=== PATIENT | male | born 1995 | race Caucasian/White ===

== ENCOUNTER 2016-11-22 23:10 | Emergency (ER) | payer OTHER ==
[2016-11-22 23:24] VITALS: TEMP 98.4
--- NOTE | 2016-11-22 23:30 | EDPHY ---
General - History Smoking Status: Unknown if ever smoked Narrative: CHIEF COMPLAINT: Heroin withdrawal, alcohol withdrawal HISTORY OF PRESENT ILLNESS: Patient is here because he feels that he is withdrawing heroin he admits to using 2 to 3 times a day of heroin. He also admits to drinking 7 a shot of alcohol daily of varying alcohol. Denies heroin use with the past 2 days. Denies any alcohol ingestion since yesterday evening. Complains of abdominal discomfort, hallucinations, malaise, nausea, vomiting, generalized withdrawal symptoms consistent with previous heroin withdrawals he has had. He does not describe any seizures, headache, neck pain , sweating, fever. He has never gone into delirium tremens. He has never had a seizure from alcohol withdrawal. No modifying factors for this. REVIEW OF SYSTEMS: Ten systems reviewed and are negative unless otherwise noted in the HPI PERTINENT MEDICAL HISTORY: Alcoholic, heroin abuser, substance abuse EXAMINATION General Appearance: Alert, no distress. Unkempt laying comfortably. Head: normocephalic, atraumatic Eyes: Pupils equal and round, no conjunctival pallor or injection. EOMs intact. ENT, Mouth: Mucous membranes moist. Lips are dry. Angular cheilitis. Neck: Normal inspection, supple, non-tender Respiratory: Lungs are clear to auscultation. No wheezing, rhonchi or crackles. Cardiovascular: Regular rate and rhythm. No murmur. Gastrointestinal: Abdomen is soft and nontender Neurological: A&O, nonfocal, strength symmetric. No tremulous activity. No spasms. No seizure activity. Skin: Warm and dry, no rash Extremities: Nontender, no pedal edema Psychiatric: Flat affect. Denies suicidal ideation or homicidal ideation. DIFFERENTIAL DIAGNOSES: Including but not limited to heroin abuse, withdrawal, alcohol abuse, alcohol withdrawal. Substance abuse MDM: 8:20 p.m. Reports a withdrawing from alcohol and heroin. Patient is resting very comfortably. His vital signs are all within normal limits. He is not tremulous. He does not exhibit any seizure-like activity. He is not encephalopathic. He is resting very comfortably. I do not feel he is actively withdrawing, and I certainly do not see any evidence of delirium tremens. I do recommend that we place the patient on Librium, he has consented to going to the park for treatment. Awaiting evaluation by attending physician 11:[address] Escalante has evaluated the patient. She agrees with my assessment and plan. She recommends 1 dose of Librium 25 mg here. The patient has consented to being transported to the [facility] for monitor Librium administration. Patient will be discharge and taken to the [facility] by cab. He is ambulatory without assistance, and he is in no acute distress. Stable condition. SUPERVISION: Patient was evaluated in conjunction with the supervising physician. Please see their note for details. (Rafael Soliman) Medical Decision Making: ED PA DICTATION I evaluated and participated in the management of the patient. I also evaluated the patient independently. My co-signature indicates that I have reviewed this chart and I agree with the findings and plan of care as documented. My personal H&P findings include: This is a 21-year-old male with recent heavy alcohol and heroin use who quit using over the last 1 day and now is presenting with withdrawal symptoms. He describes visual hallucinations which she has had multiple times previously with his withdrawals. He does not have tachycardia, tremor, anxiety. He is generally well-appearing. He will be discharged with a prescription for Librium, we will give him his 1st dose here. [facility]. (Verenice Escalante) - Objective Vital Signs: Initial Vital Signs Temperature (C) 36.9 C 11/22/16 23:21 Heart Rate 75 11/22/16 23:21 Respiratory Rate 14 11/22/16 23:21 Blood Pressure 117/65 11/22/16 23:21 O2 Sat (%) 97 11/22/16 23:21 O2 Delivery Mode Room Air Allergies/Adverse Reactions: tree nut Allergy (Verified 11/22/16 23:20) Home Medications: Medication Instructions Recorded NK [No Known Home Meds] 11/22/16 Medications Given: Discontinued Medications Chlordiazepoxide (Librium 25 Mg Prepack#6) 1 btl TAKEHOME EDNOW ONE Stop: 11/22/16 23:36 Last Admin: 11/23/16 00:07 Dose: 1 btl Chlordiazepoxide HCl (Librium) 25 mg PO EDNOW ONE Stop: 11/22/16 23:36 Last Admin: 11/23/16 00:00 Dose: 25 mg Departure - Departure Disposition: Home, Routine, Self-Care Clinical Impression: Heroin abuse, Alcohol abuse Condition: Good Instructions: Narcotic Abuse (ED), Abuse of Alcohol (ED), Polysubstance Abuse ( ED) Additional Instructions: Follow-up at the [facility] for monitor Librium administration. Return to ER for worsening symptoms, fever, sweating or vomiting Referrals: Patient,NotPresent [Unknown] - As per Instructions Lei London DO [Doctor of Osteopathy] - As per Instructions
[2016-11-22] MEDS ORDERED: chlordiazePOXIDE 25 MG CAP PO ONE (23:35)
[2016-11-22] MEDS ORDERED: CHLORDIAZEPOXIDE 25MG PREPK#6 BTL TAKEHOME ONE (23:35)
[2016-11-23 00:06] VITALS: BP 118/65; PULSE 82; RESP 18; O2SAT 96
== END 2016-11-23 00:09 | disposition home or self-care (01) ==
DX: F11.10 Opioid abuse, uncomplicated (principal); F10.10 Alcohol abuse, uncomplicated

== ENCOUNTER 2016-11-23 18:07 | Inpatient (IN) | payer OTHER ==
--- NOTE | 2016-11-23 18:35 | EDPHY ---
H & P Smoking Status: Current every day smoker Time Seen by Provider: 11/23/16 18:30 HPI/ROS: CHIEF COMPLAINT: SI. HISTORY OF PRESENT ILLNESS: The patient is a 21-year-old male who presents with SI. He admits auditory hallucinations telling him to kill himself and others. He reports a history of drug-induced psychosis but no other psychiatric illnesses. He last used heroin 3 days and and last drank alcohol yesterday and is withdrawing from both. He has been admitted to psychiatric facilities 3 times before. He has not been on his psychiatric medications since moving to [place]. He denies benzodiazepine use, recent sickness, fever, or other medical complaints at this time. REVIEW OF SYSTEMS: A complete 10-point review of systems was performed and is negative except for those items mentioned in the HPI. (Dorothy Rios) Past Medical/Surgical History: Drug-induced psychosis. (Dorothy Rios) Social History: Polysubstance abuse, smoker. (Dorothy Rios) Physical Exam: General Appearance: Alert, no distress Eyes: Pupils equal and round, no conjunctival pallor or injection ENT, Mouth: Mucous membranes moist Neck: Normal inspection Respiratory: Lungs are clear to auscultation Cardiovascular: Regular rate and rhythm Gastrointestinal: Abdomen is soft and non-tender Neurological: A&O, nonfocal, normal gait Skin: Warm and dry, no rash Extremities: Nontender, no pedal edema Psychiatric: Mood and affect normal (Dorothy Rios) Constitutional: Initial Vital Signs Temperature (C) 36.4 C 11/23/16 18:18 Heart Rate 70 11/23/16 18:18 Respiratory Rate 18 11/23/16 18:18 Blood Pressure 106/80 11/23/16 18:18 O2 Sat (%) 96 11/23/16 18:18 O2 Delivery Mode Room Air Allergies/Adverse Reactions: tree nut Allergy (Verified 11/23/16 18:17) Home Medications: Medication Instructions Recorded NK [No Known Home Meds] 11/22/16 Medical Decision Making ED Course/Re-evaluation: 21-year-old male presents for suicide ideation and auditory hallucinations. He tells me these are telling him both to kill himself and harm others. Last heroin use 3 days ago and last alcohol use yesterday. He has no medical complaints at this time. An M1 hold was placed by me. The patient is awaiting evaluation by the mental health team. 2048: Consulted with [facility]. They report that the patient is not being fully honest and they have not been able to complete a full evaluation as he is not being fully cooperative. They do not believe he is having hallucinations. We reevaluated him together. I discussed with him the benefits of working with the mental health team. They are reevaluating him. 2199: Patient signed out to Dr. Mack at shift change. He is currently being evaluated. (Dorothy Rios) 11/23/162199 Care assumed by me from Dr Rios. Pt is suicidal, on M1 hold. Awaiting mental health evaluation. 11/24/16 00:10 patient 6 been accepted to [address] [place] [address] Spann[address] (Mike Mack) - Data Points Laboratory Results: Laboratory Results 11/23/16 18:41 11/23/16 18:41 11/23/16 11/23/16 11/23/16 19:00 18:41 18:41 WBC 7.87 10^3/uL 10^3/uL (3.80-9.50) RBC 5.83 10^6/uL 10^6/uL (4.40-6.38) Hgb 17.0 g/dL g/dL (13.7-17.5) Hct 49.5 % % (40.0-51.0) MCV 84.9 fL fL (81.5-99.8) MCH 29.2 pg pg (27.9-34.1) MCHC 34.3 g/dL g/dL (32.4-36.7) RDW 12.8 % % (11.5-15.2) Plt Count 237 10^3/uL 10^3/uL (150-400) MPV 8.9 fL fL (8.7-11.7) Neut % (Auto) 46.9 % % (39.3-74.2) Lymph % (Auto) 39.5 % % (15.0-45.0) Citrus % (Auto) 8.3 % % (4.5-13.0) Eos % (Auto) 4.4 % % (0.6-7.6) Baso % (Auto) 0.5 % % (0.3-1.7) Nucleat RBC Rel Count 0.0 % % (0.0-0.2) Absolute Neuts (auto) 3.69 10^3/uL 10^3/uL (1.70-6.50) Absolute Lymphs (auto) 3.11 10^3/uL H 10^3/uL (1.00-3.00) Absolute Monos (auto) 0.65 10^3/uL 10^3/uL (0.30-0.80) Absolute Eos (auto) 0.35 10^3/uL 10^3/uL (0.03-0.40) Absolute Basos (auto) 0.04 10^3/uL 10^3/uL (0.02-0.10) Absolute Nucleated RBC 0.00 10^3/uL 10^3/uL (0-0.01) Immature Gran % 0.4 % % (0.0-1.1) Immature Gran # 0.03 10^3/uL 10^3/uL (0.00-0.10) Sodium 137 mEq/L mEq/L (134-144) Potassium 4.8 mEq/L mEq/L (3.5-5.2) Chloride 98 mEq/L mEq/L (97-110) Carbon Dioxide 26 mEq/l mEq/l (22-31) Anion Gap 13 mEq/L mEq/L (8-16) BUN 15 mg/dL mg/dL (7-23) Creatinine 0.9 mg/dL mg/dL (0.7-1.3) Estimated GFR > 60 Glucose 86 mg/dL mg/dL (70-100) Calcium 10.0 mg/dL mg/dL (8.5-10.4) Urine Opiates Screen NEGATIVE (NEGATIVE) Urine Barbiturates NEGATIVE (NEGATIVE) Ur Phencyclidine Scrn NEGATIVE (NEGATIVE) Ur Amphetamine Screen NEGATIVE (NEGATIVE) U Benzodiazepines Scrn NON-NEGATIVE H (NEGATIVE) Urine Cocaine Screen NEGATIVE (NEGATIVE) U Marijuana (THC) Screen NON-NEGATIVE H (NEGATIVE) Ethyl Alcohol < 10 mg/dL mg/dL (0-10) Departure - Departure Disposition: [facility] IP Clinical Impression: Suicide ideation Condition: Fair Referrals: NONE *PRIMARY CARE P,. [Primary Care Provider] - As per Instructions Report Scribed for: Dorothy Rios Report Scribed by: Devin Arguelles Date of Report: 11/23/16 Time of Report: 18:31 Physician Review and Approval Statement: 11/23/16 18:31 Portions of this note were transcribed by a medical charge entry specialist. I personally performed a history, physical exam, medical decision making, and confirmed accuracy of information the transcribed note. (Dorothy Rios)
[2016-11-23 18:51] LABS: % IMMATURE GRANULYOCYTES 0.4 % (0.0-1.1); ABSOLUTE IMMATURE GRANULOCYTES 0.03 10^3/uL (0.00-0.10); ADD DIFF? NO; ADD MORPH? NO; ADD SCAN? NO; ATYPICAL LYMPHOCYTE FLAG 20 (0-99); FRAGMENT RBC FLAG 0 (0-99); HEMATOCRIT 49.5 % (40.0-51.0); LEFT SHIFT FLG 0 (0-99); LIPEMIA HEMOLYSIS FLAG 90 (0-99); MEAN CELL HEMOGLOBIN 29.2 pg (27.9-34.1); MEAN CELL HEMOGLOBIN CONCENTR. 34.3 g/dL (32.4-36.7); MEAN CELL VOLUME 84.9 fL (81.5-99.8); MEAN PLATELET VOLUME 8.9 fL (8.7-11.7); PLATELET CLUMPS FLAG 0 (0-99); PLATELET COUNT 237 10^3/uL (150-400); RED BLOOD CELL COUNT 5.83 10^6/uL (4.40-6.38); RED CELL DISTRIBUTION WIDTH 12.8 % (11.5-15.2)
[2016-11-23 19:02] LABS: ANION GAP 13 mEq/L (8-16); CARBON DIOXIDE 26 mEq/l (22-31); CHLORIDE 98 mEq/L (97-110); CREATININE 0.9 mg/dL (0.7-1.3); ETHANOL SERUM < 10 mg/dL (0-10); GLOMERULAR FILTRATION RATE > 60; GLUCOSE 86 mg/dL (70-100); POTASSIUM 4.8 mEq/L (3.5-5.2); SODIUM 137 mEq/L (134-144)
[2016-11-24] MEDS ORDERED: OLANZapine DISINTEGR 10 MG TAB PO PRN (00:40)
[2016-11-24] MEDS ORDERED: MAG HYDROX/AL HYDROX/SIMETH 30 ML UDCUP PO PRN (00:40)
[2016-11-24] MEDS ORDERED: ACETAMINOPHEN 325 MG TAB PO PRN (00:40)
[2016-11-24] MEDS ORDERED: NICOTINE POLACRILEX 2 MG GUM B PRN (00:40)
[2016-11-24] MEDS ORDERED: MAGNESIUM HYDROXIDE 30 ML UDCUP PO PRN (00:40)
--- NOTE | 2016-11-24 16:25 | BCON ---
[f rep ] BEHAVIORAL HEALTH CONSULTATION INTERNAL MEDICINE CONSULTATION DATE OF CONSULTATION: 11/24/2016 REFERRING PHYSICIAN: Yonatan Spann MD REASON FOR CONSULTATION: Medical clearance for inpatient behavioral health stay. HISTORY OF PRESENT ILLNESS: The patient came to the emergency department with suicidal ideation and complaining of auditory hallucinations telling him to kill himself and others. He also reported that he had last used heroin 3 days prior and that he had had alcohol the day before and was in withdrawal from both. He was evaluated by the mental health team and admitted for further psychiatric care. He reports that he is no longer feeling withdrawal symptoms, though he feels sleepy. Otherwise, he is without any acute medical complaints. PAST MEDICAL HISTORY: 1. Polysubstance abuse. 2. Concussion in high school. PAST SURGICAL HISTORY: He reports he has had an appendectomy and nasal surgery. MEDICATIONS: He was noncompliant with his psychiatric medications, which were clonazepam 1 mg p.o. daily, quetiapine 300 mg p.o. q.h.s., gabapentin 1600 mg p.o. daily, and paliperidone 6 mg p.o. daily. ALLERGIES: There is a tree nut allergy listed. SOCIAL HISTORY: He is a heavy tobacco smoker, and he has a history of alcohol use as well as heroin use. His tox screen was positive for marijuana as well. FAMILY HISTORY: Noncontributory. REVIEW OF SYSTEMS: He denies withdrawal symptoms, including no tremor, no sweats, no piloerection. He reports that he has constipation. He reports that he has a history of intranasal heroin use and denies a history of IV drug abuse , and he has no skin infections. Otherwise, a 10-point review of systems is negative. PHYSICAL EXAM: VITAL SIGNS: Blood pressure is 120/67. Heart rate is 66. Respiratory rate is 15. Oxygen saturation is 97% on room air. Temperature is 36.6 degrees centigrade. His weight is 74.8 kg for a body mass index of 23. GENERAL: This is a well-nourished, well-developed man, appears his chronologic age, cooperative and in no acute distress. HEENT: Extraocular movements are intact. Pupils are equal, round, and reactive to light. Mucous membranes are moist. Dentition is in good condition. There is no posterior oropharyngeal mucus or oropharyngeal mucosal erythema or exudate. NECK: Supple. HEART: There is a regular rate and rhythm with no murmurs, rubs, or gallops. LUNGS: Clear to auscultation bilaterally. ABDOMEN: Soft, nontender, and nondistended with normoactive bowel sounds. EXTREMITIES: There is no cyanosis, clubbing, or edema. NEUROLOGIC: He is alert and oriented x3. Cranial nerves 2-12 are grossly intact. There is no focal weakness. Sensation is intact to light touch , and gait is within normal limits. LABORATORY STUDIES: Drawn in the emergency department: CBC was overall within normal limits, but for a slight increase in absolute lymphocytes of no clinical significance. Serum chemistry revealed normal renal function and electrolytes. Toxicology screen in the serum was negative for ethyl alcohol and in the urine was non-negative for benzodiazepines and marijuana. It was otherwise negative for other substances of abuse. ASSESSMENT/RECOMMENDATIONS: 1. Mental health issues. Pending further evaluation and management per Psychiatry and the mental health team. 2. Tobacco dependence syndrome. He was encouraged to quit smoking. 3. Heroin abuse. He does not appear to be in withdrawal from heroin. He might benefit from specific substance abuse counseling. I see no medical contraindications to the patient's continued stay on the inpatient behavioral health unit or to any psychiatric medications or procedures. Thank you very much for including me in the care of this patient, and please do not hesitate to contact me or the hospitalist service should there be a need for further medical evaluation. /[id number]/MODL MTDD
[2016-11-24] MEDS: LORazepam 0.5 MG TAB PO PRN (17:49)
[2016-11-24] MEDS: QUEtiapine FUMARATE 50 MG TAB PO PRN (17:49)
--- NOTE | 2016-11-24 19:16 | BAPA ---
[f rep st] ADMISSION PSYCHIATRIC ASSESSMENT DATE OF SERVICE: 11/24/2016 REASON FOR ADMISSION: The patient is a 21-year-old, male with a self-reported history of drug-induced psychosis, substance dependence, obsessive-compulsive disorder and ADHD. He presented to the emergency department after having gone initially to the [facility] requesting detox. He stated he w as in "severe alcohol withdrawal." He states he was hearing voices and seeing things, and "I was ab out to lose my mind." While he was at the [facility], he told them he was having thoughts of suicide and w as brought over to the emergency department by the police. In the emergency department, he continue d to endorse both the psychotic symptoms and suicidality and was placed on an M1 hold and admitted f or further evaluation. Today he states that he is no longer having any hallucinations. He does not believe he is any longer in withdrawal. He states that he drinks 8 shots of liquor per night, usual ly vodka, and smokes marijuana on a daily basis. He also reports that, over the last month, he has decided to take up heroin and has been snorting some form of heroin on a daily basis since then. He describes the auditory hallucinations as "people screaming" and states that he is seeing some type of person that "looks like a monster" in his peripheral vision. He does report that this has resolv ed now but that this was occurring over the last several days. He and his girlfriend apparently tra veled from [place], [place], out to [place] about 5 days ago. Shortly after arriving, the girlfriend decided she needed to go into rehab and drove back by herself to [place], [place]. The patient states that he has been alone and homeless in [place] since that time and that this is contributing to his suicidality. He states now that he wants to return to his parents' home and [place] and seek han tment there. PAST PSYCHIATRIC HISTORY: Significant for 3 previous psychiatric hospitalizations; the last in 2015. He had 1 previous suicide attempt by overdose per his report about 6 months ago. He has been managed by Dr. Meyer in [place] for his medications and was previously prescribed Invega, Ser oquel and Neurontin. He states that he believes the Seroquel was helpful but the others were not. He has not taken any medicines in approximately 1 week. ALLERGIES: Tree nuts. CURRENT MEDICATIONS: None. PAST MEDICAL HISTORY: Noncontributory. Patient denies any history of central nervous system diseas e. SOCIAL HISTORY: The patient lives in [place] with his parents. He is a high school graduate with one semester of college. He has 2 younger siblings who live at home. He was living with his parent s until he relapsed on alcohol and drugs, at which time he decided to leave or they decided for him to leave and he came to [place]. 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 He denies any legal problems at this time. SUBSTANCE ABUSE HISTORY: Alcohol: The patient began drinking at 15 and states he drinks 8 shots a day at this time. He states he has had major alcohol withdrawal in the past. Marijuana: The patient smokes marijuana daily. Opiates: The patient states that he has been using heroin on a daily or near daily basis for the pas t month, snorting. Denies any IV drug use. Hallucinogens: The patient states that he has used mushrooms and LSD. FAMILY HISTORY: Noncontributory for any history of psychiatric illness or substance abuse. ADMISSION LABORATORY: CBC is normal. Serum chemistries are normal. Urine drug screen positive for benzodiazepines and marijuana. MENTAL STATUS EXAMINATION: Reveals a thin though healthy-appearing male. He is marginall y groomed, casually dressed. He interacts well with the examiner, displaying good social skills and a calm and pleasant demeanor. He appears to be somewhat anxious and is hypervigilant, turning to l ook at the door every time someone walks by or yells in the hallway. His affect is otherwise constr icted though stable and appropriate. His mood is described as "messed up." His thought processes a re linear and goal directed. His thought content reveals no current evidence of psychosis. No rece nt report of auditory or visual hallucinations. He is alert and oriented to person, place, time, si tuation and his sensorium is clear. His attention and concentration are adequate. There is no evid ence of intoxication or delirium. He denies current thoughts of suicide, stating that he feels bett er having been in the hospital and his withdrawal symptoms resolved. He wants to get on a plane and return to [place]. The patient's intellect appears to be at least average as evidenced by his educa tional and occupational history, his fund of knowledge, and vocabulary. His insight and judgment ap pear to be marginal. IMPRESSION: 1. Substance-induced psychosis. 2. Cannabis use disorder, severe. 3. Alcohol use disorder, moderate to severe. 4. Opiate use disorder, moderate to severe. 5. Attention deficit hyperactivity disorder by history. 6. Obsessive compulsive disorder by history. 7. Major depressive disorder, by history. 8. Homelessness. 9. Separation from natural supports. PLAN: The patient is a 21-year-old, male with a primary substance use disorder. He prese nts at this time on transfer from the detox unit due to having voiced some suicidal ideation. There is no evidence of major alcohol withdrawal at this time and I would attribute any valid psychotic s ymptoms to intoxication. He currently appears to be medically stable and disavowing thoughts of daria cide. Will monitor for least another 24 hours prior to considering allowing him to return home to [place] of his own accord. Estimated length of stay is 2-3 days. /[id number]/MODL
[2016-11-24] MEDS: QUEtiapine FUMARATE 300 MG TAB PO SCH (21:03)
[2016-11-25] MEDS: QUEtiapine FUMARATE 50 MG TAB PO PRN ×3 (10:06→18:14)
[2016-11-25] MEDS: LORazepam 0.5 MG TAB PO PRN ×3 (10:06→18:14)
--- NOTE | 2016-11-25 18:33 | SOAPPROG ---
SOAP Progress Note Assessment/Plan: Assessment: Plan: 11/25/16 18:33 Stabilizing. No withdrawal, no psychosis, no current SI. May go to [facility] on Monday. CCM. Subjective: Pt seen, discussed with staff. Reports feeling "messed up" but denies any withdrawal sx's or hallucinations. Spending most of his time in bed. No bx problems. Objective: Vital Signs Temp Pulse Resp BP Pulse Ox 36.5 C 64 15 117/57 L 95 11/25/16 06:00 11/25/16 06:00 11/25/16 06:00 11/25/16 06:00 11/25/16 06:00 MSE: Moderately anxious, cooperative and interactive. Affect is constricted, stable. Mood is "not too good." TP linear. TC reveals no active psychosis. No current SI. - Time Spent With Patient Time Spent With Patient: 15" ICD10 Worksheet Patient Problems: Problems Problem Status Onset Suicide ideation Acute
[2016-11-25] MEDS: QUEtiapine FUMARATE 300 MG TAB PO SCH (21:39)
[2016-11-26 06:41] VITALS: BP 101/57; PULSE 58; RESP 16; TEMP 97.5; O2SAT 99
[2016-11-26] MEDS: QUEtiapine FUMARATE 50 MG TAB PO PRN ×2 (08:22→12:06)
[2016-11-26] MEDS: LORazepam 0.5 MG TAB PO PRN ×2 (08:22→12:06)
--- NOTE | 2016-11-26 14:00 | BDS ---
[f rep st] BEHAVIORAL HEALTH DISCHARGE SUMMARY REASON FOR ADMISSION: Patient is a 21-year-old male with a history of substance abuse., d epression, and previous suicidality. He initially had gone to the [facility] requesting detox from alcohol , but gave a very inconsistent history of what he described as severe withdrawal that clearly was no t happening. He did tell them he was suicidal and was brought over to [facility]. There he continued to voice suicidal thoughts, was placed on an M1 hold, and admitted for furthe r evaluation. Full description of the events preceding admission can be found in his admission hist ory dated 11/24/2016. ADMITTING DIAGNOSES: 1. Substance-induced psychosis. 2. Cannabis-use disorder, severe. 3. Alcohol-use disorder, moderate to severe. 4. Opiate-use disorder, moderate to severe. 5. Attention deficit hyperactivity disorder, by history. 6. Obsessive-compulsive disorder, by history. 7. Major depressive disorder, by history. 8. Homelessness and separation from natural supports. ADMITTING PHYSICAL EXAMINATION: Performed by Dr. Jovani Hu, showed no acute findings. ADMISSION LABORATORY: CBC was normal. Serum chemistries were normal. Urine drug screen was positi ve for benzodiazepines and marijuana. HOSPITAL COURSE: [facility] on an M1 hold. He was isolative, staying in his room, not wanting to participate in groups or actively in intervi ews. He was able to give me a history, though he seemed to embellish many aspects of this; one of w hich was that he was hearing things and seeing things, which I do not believe he was. We did monito r him for any evidence of acute withdrawal, and his vital signs were stable. He was given Seroquel 50 mg every 4 hours as needed for anxiety and took several doses of this. He was also given some am ount of lorazepam 0.5 to 1 mg, also for anxiety. He was given Seroquel 300 mg at h.s. for sleep per his request. The patient was engaged by me and the healthcare sales representative, and his mother was involved from their home in [place]. She voiced a strong desire for him to return to a rehab, and interviews were done over the phone with both [facility] here in [place] and with a program in [place]. He was accepted into both programs, but then, after he was made a voluntary patient, he immediately requested discharge and s tated that he wanted to hitchhike to [place] and not go to rehab. I discussed this with him in v jefe blunt terms, that I believe this was a poor choice and that he should likely seek sobriety. He stated that he did not want to. He was allowed to be discharged. He adamantly denied suicidality t hroughout his stay and stated at the time of discharge he was having no thoughts of suicide, homicid e, or violence. CONDITION ON DISCHARGE: Stable. He was functioning adequately, though he is making poor choices. He was competent to do so. DISCHARGE MEDICATIONS: None. DISCHARGE DIAGNOSES: 1. Cannabis-use disorder, severe. 2. Opiate-use disorder, moderate. 3. Alcohol-use disorder, moderate to severe. 4. Homelessness and separation for natural supports. DISPOSITION: Patient left the hospital against medical advice of his own accord. FOLLOWUP: None scheduled. LEGAL COURSE: The patient was converted to a voluntary status at the expiration of his M1 hold. /[id number]/MODL
== END 2016-11-26 13:50 | disposition left against medical advice (07) | DRG 894 ==
LOC: BBEH 11-24 00:30
PROVIDERS: ADMIT Psychiatry & Neurology Psychiatry; ATTEND Psychiatry & Neurology Psychiatry
DX: F12.90 Cannabis use, unspecified, uncomplicated (principal); F11.90 Opioid use, unspecified, uncomplicated; Z72.89 Other problems related to lifestyle; Z59.0 Homelessness; F17.200 Nicotine dependence, unspecified, uncomplicated
CPT/HCPCS: 80305; G0480

== ENCOUNTER 2017-01-19 16:14 | Emergency (ER) | payer OTHER ==
[2017-01-19 16:27] VITALS: BP 128/50; PULSE 118; RESP 16; TEMP 97.7; O2SAT 95
--- NOTE | 2017-01-19 16:29 | EDPHY ---
H & P Time Seen by Provider: 01/19/17 16:19 HPI/ROS: Chief Complaint: Med clearance, seizure HPI: 21-year-old male states he has a history of seizure disorder and schizophrenia bipolar disorder. Has normally takes Xanax for his mental illness and his seizures. He just moved to [place] about a week ago. Patient was being pursued by the police in a foot vishal because he was afraid he was going to get arrested. Patient states he had a seizure about a week ago. Has been using polysubstance including meth, MDMA, alcohol. Last meth was yesterday. Last alcohol was this morning. Denies any falls or trauma. No loss of consciousness or seizures. Did not hit his head. Is complaining of "brain pain" from his mental illness. Patient states he start taking his medications several weeks ago. ROS: 10 point Review of Systems is negative except as noted in the HPI. PMH: Mental illness, nonspecified Social History: Positive smoking, positive alcohol, polysubstance abuse recently including methamphetamine, MDMA Family History: non-contributory Physical Exam: Gen: Awake, Alert, No Distress, disheveled, shortness, HEENT: Nose: no rhinorrhea Eyes: PERRLA, EOMI Mouth: Moist mucosa Neck: Supple, no JVD Chest: nontender, lungs clear to auscultation Heart: S1, S2 normal, no murmur Abd: Soft, non-tender, no guarding Back: no CVA tenderness, no midline tenderness Ext: no edema, non-tender Skin: no rash Neuro: CN II-XII intact, Sensation grossly intact, Strength 5/5 in bilateral upper and lower extremities - Medical/Surgical History Hx Asthma: No Hx Chronic Respiratory Disease: No Hx Diabetes: No Hx Cardiac Disease: No Hx Renal Disease: No Hx Cirrhosis: No Hx Alcoholism: No Hx HIV/AIDS: No Hx Splenectomy or Spleen Trauma: No Other PMH: DRUG ABUSE/PSYCH ISSUES; appendectomy about two years ago - Social History Smoking Status: Heavy smoker Allergies/Adverse Reactions: tree nut Allergy (Verified 11/23/16 18:17) Home Medications: Medication Instructions Recorded Xanax 01/19/17 Medical Decision Making ED Course/Re-evaluation: 21-year-old male here complaining of a seizure week ago claiming he has a seizure disorder for which she normally takes Xanax. He was involved in a foot vishal nurse by police. They brought him in for medical clearance. Patient is tachycardic likely secondary from his running a and his methamphetamine abuse. There is no evidence of any traumatic injuries on examination. He is awake alert answering questions acting appropriately. He is medically cleared for snf. Departure - Departure Disposition: Home, Routine, Self-Care Clinical Impression: Medical clearance for incarceration Condition: Good Instructions: Methamphetamine Abuse (ED), Polysubstance Abuse (ED) Additional Instructions: Patient is medically clear for snf. Referrals: Patient,NotPresent [Primary Care Provider] - As per Instructions
== END 2017-01-19 16:33 | disposition home or self-care (01) ==
LOC: EDUNIT#
DX: Z02.89 Encounter for other administrative examinations (principal); F17.200 Nicotine dependence, unspecified, uncomplicated

== ENCOUNTER 2017-02-17 19:29 | Emergency (ER) | payer OTHER ==
--- NOTE | 2017-02-17 19:30 | EDPHY ---
H & P Time Seen by Provider: 02/17/17 19:30 Constitutional: Initial Vital Signs Temperature (C) 37.5 C 02/17/17 19:37 Heart Rate 129 H 02/17/17 19:37 Respiratory Rate 20 02/17/17 19:37 Blood Pressure 125/53 H 02/17/17 19:37 O2 Sat (%) 98 02/17/17 19:37 O2 Delivery Mode Room Air Allergies/Adverse Reactions: tree nut Allergy (Verified 02/17/17 19:37) Home Medications: Medication Instructions Recorded Xanax 01/19/17 Amoxicillin/Clavulanate Pot 875 mg PO BID #20 tab 02/17/17 [Augmentin 875 MG TAB (*)] Medical Decision Making ED Course/Re-evaluation: CHIEF COMPLAINT: Police dog bite HISTORY OF PRESENT ILLNESS: The patient is a 22 y/o male arriving via EMS in [facility] custody for medical clearance after police dog bite. Per EMS, the patient ran from police and the K9 unit ran after him biting him on the left posterior thigh. He denies any other complaints. No weakness, paresthesias. REVIEW OF SYSTEMS: A 10 point review of systems was performed and is negative with the exception of the elements mentioned in the history of present illness. PHYSICAL EXAM: HR, BP, O2 Sat, RR. Temp noted General Appearance: Alert, well hydrated, appropriate, and non-toxic appearing. Covered in mud, flat affect. Head: Atraumatic without scalp tenderness or obvious injury Eyes: Pupils equal, round, reactive to light and accommodation, EOMI, no trauma , no injection. Nose: Atraumatic, no rhinorrhea, clear. Throat: Mucus membranes moist. Neck: Supple, nontender Respiratory: No respiratory distress. Cardiovascular: Left posterior tibial pulse intact. Good capillary refill all extremities. Gastrointestinal: Abdomen is soft, nontender, non-distended, no masses, no rebound, no guarding, no peritoneal signs. Musculoskeletal: Normal active ROM of all extremities, puncture wounds to left posterolateral thigh, otherwise atraumatic. Neurological: Alert, appropriate, and interactive. Nonfocal neuro exam. Skin: No rashes, good turgor, no nodules on palpation. Past medical history: Denies Past surgical history: Denies Family history: Noncontributory Social history: In [employer] custody DIFFERENTIAL DIAGNOSIS: The differential diagnosis for the patient's trauma included but was not limited to intracranial injury, long bone and pelvic bone fractures, spinal injury, intra-abdominal injury, and intra-thoracic injury. MEDICAL DECISION MAKING: This is a 22 y/o male who presents with puncture wounds to his left thigh following bite by police dog. He denies any specific complaints. Puncture wounds noted on posterolateral left thigh that are non-suturable. Plan for wound care, tetanus, and antibiotics, then discharge to the snf in good condition. Return precautions discussed. Departure - Departure Disposition: Home, Routine, Self-Care Clinical Impression: Dog bite of left thigh Qualifiers: Encounter type: initial encounter Qualified Code(s): S71.152A - Open bite, left thigh, initial encounter Condition: Good Instructions: Amoxicillin/Clavulanate Potassium (By mouth), Animal Bite (ED), Acute Wounds (ED) Additional Instructions: Medically clear for snf 1. Take Augmentin as prescribed. Be sure to complete entire prescription. 2. Apply bacitracin topically until wounds scab over. 3. Follow up with your primary care provider for unimproved symptoms. Referrals: Patient,NotPresent [Unknown] - As per Instructions [facility],. [Clinic] - As per Instructions Prescriptions: Amoxicillin/Clavulanate Pot [Augmentin 875 MG TAB (*)] 875 mg PO BID #20 tab Report Scribed for: Jewel Burgos Report Scribed by: Alicia Benton Date of Report: 02/17/17 Time of Report: 19:38
[2017-02-17] MEDS ORDERED: AMOXICILLIN/CLAVULANATE POT 875/125 MG TAB PO ONE (19:38)
[2017-02-17 19:39] VITALS: RESP 20
[2017-02-17] MEDS ORDERED: TDAP ADULT 0.5 ML INJ (BOOSTRIX) IM ONE (19:40)
[2017-02-17 20:41] VITALS: BP 137/70; PULSE 127; TEMP 99; O2SAT 95
== END 2017-02-17 20:40 | disposition home or self-care (01) ==
LOC: EDUNIT#
DX: S71.152A Open bite, left thigh, initial encounter (principal); Z23 Encounter for immunization; W54.0XXA Bitten by dog, initial encounter; Y99.8 Other external cause status; Y93.02 Activity, running

== ENCOUNTER 2017-07-26 09:43 | Emergency (ER) | payer OTHER ==
[2017-07-26 09:51] VITALS: RESP 16
--- NOTE | 2017-07-26 09:55 | EDPHY ---
H & P Time Seen by Provider: 07/26/17 09:52 HPI/ROS: CHIEF COMPLAINT: Syncope HISTORY OF PRESENT ILLNESS: 22-year-old male presents to the emergency department by ambulance after having a witnessed syncopal episode while in senior living. The patient apparently became very dizzy and lightheaded and then had a witnessed syncopal episode. He apparently was lowered to the ground. He did not hit his head or lose consciousness. He apparently had a syncopal episode in June. He has had these in the past. He was recently restarted on Seroquel. He is prescribed 100 mg in the morning and 400 mg at night. He was given a dose of Seroquel on Monday and then he refused his medications yesterday and then received his 100 mg of Seroquel this morning. He has taken this medication in the past with and was weaned off of this medication and now recently restarted. Patient denies pain in his chest or difficulty breathing. Denies abdominal pain. No recent substance abuse. REVIEW OF SYSTEMS: Constitutional: No fever, no chills. Eyes: No double or blurry vision. ENT: No sore throat. Respiratory: No cough, no shortness of breath. Cardiac: No chest pain. Gastrointestinal: No abdominal pain, vomiting or diarrhea. Genitourinary: No dysuria. Musculoskeletal: No neck or back pain. Skin: No rashes. Neurological: No headache. Past Medical/Surgical History: Depression Social History: Currently resident at [facility] since February 2017 Smoking Status: Heavy smoker Physical Exam: General Appearance: Alert, lethargic. Mentating normally however answering questions appropriately. Eyes: Pupils equal and round. Extraocular motions are all intact. ENT: Mouth: Mucous membranes moist. Respiratory: No wheezing, rhonchi, or rales, lungs are clear to auscultation. Cardiovascular: Regular rate and rhythm. Gastrointestinal: Abdomen is soft and nontender, no masses, no rebound or guarding, bowel sounds normal. Neurological: Alert and oriented x 3, cranial nerves II through XII grossly intact Skin: Warm and dry, no rashes. Musculoskeletal: Nontender to palpate along the cervical, thoracic or lumbar spine. Neck is supple. Extremities: Full range of motion and no peripheral edema. Psychiatric: Patient is oriented X 3, there is no agitation. Constitutional: Initial Vital Signs Temperature (C) 36.3 C 12/13/17 09:47 Heart Rate 82 07/26/17 09:47 Respiratory Rate 16 07/26/17 09:47 Blood Pressure 119/74 07/26/17 09:47 O2 Sat (%) 100 07/26/17 09:47 O2 Delivery Mode Nasal Cannula O2 (L/minute) 2 Allergies/Adverse Reactions: tree nut Allergy (Verified 02/17/17 19:37) Home Medications: Medication Instructions Recorded Xanax 01/19/17 Amoxicillin/Clavulanate Pot 875 mg PO BID #20 tab 02/17/17 [Augmentin 875 MG TAB (*)] Medical Decision Making ED Course/Re-evaluation: 22-year-old male presents to the emergency department after having witnessed syncopal episode. He did not hit his head or lose consciousness. He is complaining of feeling very tired. He did take his morning dose, 100 mg, of Seroquel and this medication was recently restarted. I spoke with the senior living nurse, Ivette, at 9:45 a.m. to confirm patient's medications. Patient was monitored throughout his stay in the emergency department. Laboratory studies were normal. He was not hypotensive in the emergency department. He was able to drink some juice and walk around. She will be discharged back to the senior living. Case was discussed with Dr. Adrián Chance, secondary supervising physician, who did not directly evaluate the patient but agrees with treatment plan. Differential Diagnosis: Syncope including but not limited to vasovagal syncope, arrhythmia, dehydration , and blood loss. - Data Points Laboratory Results: Laboratory Results 07/26/17 09:45 07/26/17 09:45 07/26/17 07/26/17 09:45 09:45 WBC 4.75 10^3/uL 10^3/uL (3.80-9.50) RBC 4.93 10^6/uL 10^6/uL (4.40-6.38) Hgb 14.9 g/dL g/dL (13.7-17.5) Hct 41.9 % % (40.0-51.0) MCV 85.0 fL fL (81.5-99.8) MCH 30.2 pg pg (27.9-34.1) MCHC 35.6 g/dL g/dL (32.4-36.7) RDW 12.7 % % (11.5-15.2) Plt Count 197 10^3/uL 10^3/uL (150-400) MPV 9.0 fL fL (8.7-11.7) Neut % (Auto) 42.3 % % (39.3-74.2) Lymph % (Auto) 45.3 % H % (15.0-45.0) Wise % (Auto) 9.9 % % (4.5-13.0) Eos % (Auto) 1.9 % % (0.6-7.6) Baso % (Auto) 0.4 % % (0.3-1.7) Nucleat RBC Rel Count 0.0 % % (0.0-0.2) Absolute Neuts (auto) 2.01 10^3/uL 10^3/uL (1.70-6.50) Absolute Lymphs (auto) 2.15 10^3/uL 10^3/uL (1.00-3.00) Absolute Monos (auto) 0.47 10^3/uL 10^3/uL (0.30-0.80) Absolute Eos (auto) 0.09 10^3/uL 10^3/uL (0.03-0.40) Absolute Basos (auto) 0.02 10^3/uL 10^3/uL (0.02-0.10) Absolute Nucleated RBC 0.00 10^3/uL 10^3/uL (0-0.01) Immature Gran % 0.2 % % (0.0-1.1) Immature Gran # 0.01 10^3/uL 10^3/uL (0.00-0.10) Sodium 145 mEq/L H mEq/L (134-144) Potassium 4.0 mEq/L mEq/L (3.5-5.2) Chloride 107 mEq/L mEq/L (97-110) Carbon Dioxide 26 mEq/l mEq/l (22-31) Anion Gap 12 mEq/L mEq/L (8-16) BUN 7 mg/dL mg/dL (7-23) Creatinine 0.8 mg/dL mg/dL (0.7-1.3) Estimated GFR > 60 Glucose 89 mg/dL mg/dL (70-100) Calcium 10.1 mg/dL mg/dL (8.5-10.4) Departure - Departure Disposition: Home, Routine, Self-Care Clinical Impression: Syncope Qualifiers: Syncope type: unspecified Qualified Code(s): R55 - Syncope and collapse Condition: Good Instructions: Syncope (ED) Additional Instructions: Medically clear for senior living Return to the emergency department if you develop any recurring syncopal activity, if he developed chest pain, difficulty breathing, or any other concerns. Referrals: Justino Encarnacion MD [[facility] Primary Care Provider] - 2-3 days, call for appt. ( Primary care provider carbon setter)
--- NOTE | 2017-07-26 10:05 | CPEKG ---
Heart Rate: 84 RR Interval: 714 P-R Interval: 148 QRSD Interval: 98 QT Interval: 376 QTC Interval: 445 P [place]: 62 QRS [place]: 91 T Wave [place]: 52 EKG Severity - BORDERLINE ECG - EKG Impression: SINUS RHYTHM EKG Impression: PROBABLE LEFT ATRIAL ABNORMALITY EKG Impression: BORDERLINE RIGHT AXIS DEVIATION EKG Impression: INFERIOR Q WAVES, PROBABLY NORMAL VARIATION Electronically Signed By: Adrián Chance 26-Jul-2017 10:41:48
[2017-07-26 10:11] LABS: PLATELET COUNT 197 10^3/uL (150-400)
[2017-07-26 11:57] VITALS: BP 135/77; PULSE 84; TEMP 98.1; O2SAT 98
== END 2017-07-26 11:55 | disposition home or self-care (01) ==
LOC: EDUNIT#
DX: R55 Syncope and collapse (principal); F17.200 Nicotine dependence, unspecified, uncomplicated

== ENCOUNTER 2017-09-30 00:44 | Emergency (ER) | payer OTHER ==
--- NOTE | 2017-09-30 00:49 | EDPHY ---
H & P Source: Patient, EMS - Medical/Surgical History Hx Asthma: No Hx Chronic Respiratory Disease: No Hx Diabetes: No Hx Cardiac Disease: No Hx Renal Disease: No Hx Cirrhosis: No Hx Alcoholism: No Hx HIV/AIDS: No Hx Splenectomy or Spleen Trauma: No Other PMH: DRUG ABUSE/PSYCH ISSUES; appendectomy about two years ago'. lung CA 2013 - Social History Smoking Status: Heavy smoker Allergies/Adverse Reactions: tree nut Allergy (Verified 09/30/17 00:47) Home Medications: Medication Instructions Recorded Xanax 01/19/17 Amoxicillin/Clavulanate Pot 875 mg PO BID #20 tab 02/17/17 [Augmentin 875 MG TAB (*)] Departure - Departure Disposition: Home, Routine, Self-Care Clinical Impression: Alcoholic intoxication Qualifiers: Complication of substance-induced condition: uncomplicated Qualified Code(s): F10.920 - Alcohol use, unspecified with intoxication, uncomplicated Condition: Good Instructions: Alcohol Intoxication (ED), Abuse of Alcohol (ED) Referrals: NONE *PRIMARY CARE P,. [Primary Care Provider] - As per Instructions
[2017-09-30] MEDS ORDERED: NS 1,000 ML IV ONE ×3 (00:51→02:44)
[2017-09-30] MEDS ORDERED: LORazepam 2 MG/ML INJ IVP ONE (00:51)
[2017-09-30] MEDS ORDERED: LORazepam 2 MG/ML INJ ONE (00:52)
[2017-09-30 00:56] LABS: PLATELET COUNT 231 10^3/uL (150-400)
--- NOTE | 2017-09-30 01:05 | CPEKG ---
Heart Rate: 116 RR Interval: 517 P-R Interval: 172 QRSD Interval: 112 QT Interval: 332 QTC Interval: 462 P [place]: 81 QRS [place]: 96 T Wave [place]: -15 EKG Severity - ABNORMAL ECG - EKG Impression: SINUS TACHYCARDIA EKG Impression: PROBABLE LEFT ATRIAL ABNORMALITY EKG Impression: NONSPECIFIC INTRAVENTRICULAR CONDUCTION DELAY Electronically Signed By: Sam Dimas 02-Oct-2017 12:29:54
[2017-09-30 01:09] VITALS: RESP 18; TEMP 97.9
--- NOTE | 2017-09-30 01:42 | EDPHY ---
H & P Stated Complaint: CP - Personal History Current Tetanus/Diphtheria Vaccine: Unsure - Medical/Surgical History Hx Asthma: No Hx Chronic Respiratory Disease: No Hx Diabetes: No Hx Cardiac Disease: No Hx Renal Disease: No Hx Cirrhosis: No Hx Alcoholism: No Hx HIV/AIDS: No Hx Splenectomy or Spleen Trauma: No Other PMH: DRUG ABUSE/PSYCH ISSUES; appendectomy about two years ago'. lung CA 2013 - Social History Smoking Status: Heavy smoker HPI/ROS: Chief complaint: Chest pain History of present illness: This is a 22-year-old male brought to the emergency department by police from assisted for evaluation of chest pain. Patient reports the onset of pain earlier this evening. He describes a sharp pain in the left, upper aspect of his chest. It is persistent. It radiates into his left arm. He denies precipitating factors. He denies alleviating or aggravating factors. He denies other associated signs or symptoms including no cough, no trouble breathing, no pain or swelling in the legs, no trauma, no fever cold-like symptoms. He does report he is obtained crystal meth while in assisted, his last use he states was 2 weeks ago, he states nothing recently. Review of systems: A 10 point review of systems was obtained and other than described above was negative (Christopher Olvera) - Physical Exam Exam: General Appearance: Alert, nontoxic. Eyes: Pupils equal and round no pallor or injection. ENT, Mouth: Mucous membranes moist. Respiratory: There are no retractions, lungs are clear to auscultation. Cardiovascular: Regular rate and rhythm. Gastrointestinal: Abdomen is soft and non tender, no masses, bowel sounds normal. Neurological: Alert and oriented x4. Strength and sensation intact and symmetrical. Skin: Warm and dry, no rashes. Musculoskeletal: Chest wall is nontender to palpation. Extremities are symmetrical, full range of motion. Psychiatric: Patient is oriented X 3, there is no agitation. (Christopher Olvera) Constitutional: Initial Vital Signs Temperature (C) 36.6 C 09/30/17 01:03 Heart Rate 133 H 09/30/17 01:03 Respiratory Rate 18 09/30/17 01:03 Blood Pressure 100/89 H 09/30/17 01:03 O2 Sat (%) 99 09/30/17 01:03 O2 Delivery Mode Room Air Allergies/Adverse Reactions: tree nut Allergy (Verified 09/30/17 01:09) Home Medications: Medication Instructions Recorded Xanax 01/19/17 Amoxicillin/Clavulanate Pot 875 mg PO BID #20 tab 02/17/17 [Augmentin 875 MG TAB (*)] [place] Carbonate 09/30/17 Medical Decision Making - Diagnostics Imaging: I viewed and interpreted images myself ED Course/Re-evaluation: Patient discussed with my secondary supervising physician Dr. Lee De Jesus. Patient presents to the emergency department for evaluation of chest pain. On presentation he is nontoxic. Tachycardic otherwise vital signs are stable. Physical exam is benign. Blood studies are unremarkable. Chest x-ray is unremarkable. Repeat EKGs obtained due to difficulty getting baseline although ultimately they appear unremarkable. He is treated with 2 mg of Ativan as he is very anxious. He is IV hydrated. Symptoms have improved. Vital signs have improved. He will be discharged back to the assisted. He is asked to follow up with the clinic there for further care. Return precautions are given. (Christopher Olvera) 0321: I did go re-evaluate he is resting comfortably no complaints he denies chest pain or shortness of breath at this time. His tachycardia him improved greatly with IV fluids and Ativan. Heart rate is currently 98. No complaints. His EKG, troponin, D-dimer, chest x-ray has been reviewed. Benign full physical exam. Most likely tachycardia due to drugs. Given his tachycardia is rubbed and he [place] no complaints he is resting comfortably well allowed to be discharged back to assisted. Recommend refraining from doing drugs. (Lee De Jesus) Differential Diagnosis: Included but not limited to musculoskeletal pain, cardiac dysrhythmia, ACS, PE, pneumothorax, pulmonary infections (Christopher Olvera) - Data Points Laboratory Results: Laboratory Results 09/30/17 00:35 09/30/17 00:35 09/30/17 09/30/17 09/30/17 00:35 00:35 00:35 WBC RBC Hgb Hct MCV MCH MCHC RDW Plt Count MPV Neut % (Auto) Lymph % (Auto) [place] % (Auto) Eos % (Auto) Baso % (Auto) Nucleat RBC Rel Count Absolute Neuts (auto) Absolute Lymphs (auto) Absolute Monos (auto) Absolute Eos (auto) Absolute Basos (auto) Absolute Nucleated RBC Immature Gran % Immature Gran # D-Dimer < 0.27 ug/mLFEU ug/mLFEU (0.00-0.50) Sodium 143 mEq/L mEq/L (135-145) Potassium 4.2 mEq/L mEq/L (3.5-5.2) Chloride 104 mEq/L mEq/L (97-110) Carbon Dioxide 21 mEq/l L mEq/l (22-31) Anion Gap 18 mEq/L H mEq/L (8-16) BUN 8 mg/dL mg/dL (7-23) Creatinine 1.1 mg/dL mg/dL (0.7-1.3) Estimated GFR > 60 Glucose 110 mg/dL H mg/dL (70-100) Calcium 10.3 mg/dL mg/dL (8.5-10.4) Troponin I < 0.012 ng/mL ng/mL (0.000-0.034) Specimen Hemolysis 107 [place] 0.5 mEq/L L mEq/L (0.6-1.2) 09/30/17 00:35 WBC 8.23 10^3/uL 10^3/uL (3.80-9.50) RBC 5.82 10^6/uL 10^6/uL (4.40-6.38) Hgb 17.3 g/dL g/dL (13.7-17.5) Hct 49.3 % % (40.0-51.0) MCV 84.7 fL fL (81.5-99.8) MCH 29.7 pg pg (27.9-34.1) MCHC 35.1 g/dL g/dL (32.4-36.7) RDW 13.0 % % (11.5-15.2) Plt Count 231 10^3/uL 10^3/uL (150-400) MPV 9.0 fL fL (8.7-11.7) Neut % (Auto) 43.2 % % (39.3-74.2) Lymph % (Auto) 33.9 % % (15.0-45.0) [place] % (Auto) 10.3 % % (4.5-13.0) Eos % (Auto) 11.5 % H % (0.6-7.6) Baso % (Auto) 0.9 % % (0.3-1.7) Nucleat RBC Rel Count 0.0 % % (0.0-0.2) Absolute Neuts (auto) 3.55 10^3/uL 10^3/uL (1.70-6.50) Absolute Lymphs (auto) 2.79 10^3/uL 10^3/uL (1.00-3.00) Absolute Monos (auto) 0.85 10^3/uL H 10^3/uL (0.30-0.80) Absolute Eos (auto) 0.95 10^3/uL H 10^3/uL (0.03-0.40) Absolute Basos (auto) 0.07 10^3/uL 10^3/uL (0.02-0.10) Absolute Nucleated RBC 0.00 10^3/uL 10^3/uL (0-0.01) Immature Gran % 0.2 % % (0.0-1.1) Immature Gran # 0.02 10^3/uL 10^3/uL (0.00-0.10) D-Dimer Sodium Potassium Chloride Carbon Dioxide Anion Gap BUN Creatinine Estimated GFR Glucose Calcium Troponin I Specimen Hemolysis [place] Medications Given: Discontinued Medications Sodium Chloride (Ns) 1,000 mls @ 0 mls/hr IV ONCE ONE; Wide Open PRN Reason: Protocol Stop: 09/30/17 00:52 Last Admin: 09/30/17 00:58 Dose: 1,000 mls Sodium Chloride (Ns) 1,000 mls @ 0 mls/hr IV EDNOW ONE; Wide Open PRN Reason: Protocol Stop: 09/30/17 02:05 Last Admin: 09/30/17 02:30 Dose: 1,000 mls Sodium Chloride (Ns) 1,000 mls @ 0 mls/hr IV ONCE ONE PRN Reason: Wide Open Stop: 09/30/17 02:45 Last Admin: 09/30/17 02:45 Dose: 1,000 mls Lorazepam (Ativan Injection) 2 mg IVP EDNOW ONE Stop: 09/30/17 00:52 Last Admin: 09/30/17 00:53 Dose: 2 mg Departure - Departure Disposition: Home, Routine, Self-Care Clinical Impression: Chest pain Qualifiers: Chest pain type: unspecified Qualified Code(s): R07.9 - Chest pain, unspecified Condition: Good Instructions: Chest Pain (ED) Additional Instructions: Follow-up with the medical clinic in assisted for re-evaluation If symptoms worsen or new symptoms develop return to the emergency room Referrals: NONE *PRIMARY CARE P,. [Primary Care Provider] - As per Instructions [facility],. [Clinic] - As per Instructions
--- NOTE | 2017-09-30 02:11 | CPEKG ---
Heart Rate: 112 RR Interval: 536 P-R Interval: 164 QRSD Interval: 94 QT Interval: 340 QTC Interval: 464 P [place]: 55 QRS [place]: 87 T Wave [place]: 1 EKG Severity - BORDERLINE ECG - EKG Impression: SINUS TACHYCARDIA EKG Impression: BORDERLINE Q WAVES IN INFERIOR LEADS EKG Impression: INFERIOR Q WAVES, PROBABLY NORMAL VARIATION Electronically Signed By: Sam Dimas 02-Oct-2017 12:29:50
[2017-09-30 03:27] VITALS: BP 131/78; PULSE 98; O2SAT 95
--- NOTE | 2017-10-02 14:04 | CPEKG ---
Heart Rate: 130 RR Interval: 462 P-R Interval: 136 QRSD Interval: 116 QT Interval: 320 QTC Interval: 471 P [place]: 81 QRS [place]: 97 T Wave [place]: -43 EKG Severity - ABNORMAL ECG - EKG Impression: SINUS TACHYCARDIA EKG Impression: PROBABLE LEFT ATRIAL ABNORMALITY EKG Impression: NONSPECIFIC INTRAVENTRICULAR CONDUCTION DELAY Electronically Signed For: Sam Dimas 02-Oct-2017 14:07:47
== END 2017-09-30 03:32 | disposition home or self-care (01) ==
LOC: EDUNIT#
DX: R07.9 Chest pain, unspecified (principal); E86.9 Volume depletion, unspecified; F17.200 Nicotine dependence, unspecified, uncomplicated; Z85.118 Personal history of other malignant neoplasm of bronchus and lung
CPT/HCPCS: 96374; J2060

== ENCOUNTER 2017-10-07 14:41 | Emergency (ER) | payer OTHER ==
--- NOTE | 2017-10-07 14:52 | EDPHY ---
H & P Time Seen by Provider: 10/07/17 14:51 HPI/ROS: CHIEF COMPLAINT: Chest pain HISTORY OF PRESENT ILLNESS: Patient describes"stinging"chest pain intermittently over the last 2 weeks. He lasted methamphetamine or cocaine 2 weeks ago. He has been incarcerated for the last 9 months. He describes pain just on the left side of his sternum which has says is"stinging"radiates to his left arm. Not associated with shortness of breath or cough or syncope. He feels palpitations like his heart is racing and that it will slow down. Denies leg swelling or hemoptysis. Symptoms moderate. He arrives in custody. REVIEW OF SYSTEMS: Eye: no change in vision ENT: no sore throat Cardiac: HPI Pulmonary: no cough or SOB Abdomen: no vomiting, diarrhea, abdominal pain Musculoskeletal: Some back and neck pain, no recent injury Skin: no rash Neuro: no headache Constitutional: no fever : no urinary symptoms A comprehensive 10 point review of systems is otherwise negative aside from elements mentioned in the history of present illness. PAST MEDICAL HISTORY: Dr. Hu say H&P dated 11/24/2016 personally reviewed includes substance abuse and appendectomy. Social history: Currently in custody, drug use outlined as above, not in the last 2 weeks General Appearance: Alert and conversant, cooperative. Eyes: No scleral icterus. ENT, Mouth: Normal mucous membranes. Respiratory: Normal respiratory effort, breath sounds equal, lungs are clear to auscultation. Cardiovascular: Regular rate and rhythm. Tachycardia without murmur. Gastrointestinal: Abdomen is soft and non tender. Neurological: Alert, face symmetric, normal motor and sensory in extremities. Skin: Warm and dry, no rashes. Musculoskeletal: No peripheral edema. No leg swelling, no calf tenderness, no spinal tenderness. Psychiatric: Not agitated. Emergency Department course/MDM: Patient presents with atypical chest pain symptoms. He says he has 2 grandparents who venous thromboembolism. Plan for chest x-ray and troponin, D- dimer. EKG does not show high risk features for acute coronary syndrome or myocardial infarction 1544: Chest x-ray and D-dimer negative, low pretest probability for pulmonary embolism. Low risk by HEART score for ACS, discharge if troponin negative. More likely to be muscular or inflammatory Smoking Status: Heavy smoker Constitutional: Initial Vital Signs Temperature (C) 37.1 C 10/07/17 14:54 Heart Rate 90 10/07/17 14:54 Respiratory Rate 18 10/07/17 14:54 Blood Pressure 137/91 H 10/07/17 14:54 O2 Sat (%) 97 10/07/17 14:54 O2 Delivery Mode Room Air Allergies/Adverse Reactions: tree nut Allergy (Verified 09/30/17 01:09) Home Medications: Medication Instructions Recorded Xanax 01/19/17 Amoxicillin/Clavulanate Pot 875 mg PO BID #20 tab 02/17/17 [Augmentin 875 MG TAB (*)] [place] Carbonate 09/30/17 Medical Decision Making - Diagnostics EKG Interpretation: 12-lead EKG interpreted by me; official reading is in trace master. My interpretation is sinus rhythm rate 129 with inferior Q-waves noted, no acute ST changes. Imaging Results: Chest x-ray negative Imaging: I viewed and interpreted images myself Differential Diagnosis: Differential diagnosis considered for chest pain including but not limited to myocardial ischemia, aortic dissection, pericarditis, pulmonary embolus, chest wall pain, pleural inflammation and pulmonary infectious causes. - Data Points Laboratory Results: Laboratory Results 10/07/17 14:30 10/07/17 14:30 10/07/17 10/07/17 10/07/17 14:30 14:30 14:30 WBC 8.60 10^3/uL 10^3/uL (3.80-9.50) RBC 5.43 10^6/uL 10^6/uL (4.40-6.38) Hgb 15.8 g/dL g/dL (13.7-17.5) Hct 46.3 % % (40.0-51.0) MCV 85.3 fL fL (81.5-99.8) MCH 29.1 pg pg (27.9-34.1) MCHC 34.1 g/dL g/dL (32.4-36.7) RDW 12.6 % % (11.5-15.2) Plt Count 238 10^3/uL 10^3/uL (150-400) MPV 9.3 fL fL (8.7-11.7) Neut % (Auto) 61.5 % % (39.3-74.2) Lymph % (Auto) 27.0 % % (15.0-45.0) [place] % (Auto) 6.5 % % (4.5-13.0) Eos % (Auto) 4.2 % % (0.6-7.6) Baso % (Auto) 0.5 % % (0.3-1.7) Nucleat RBC Rel Count 0.0 % % (0.0-0.2) Absolute Neuts (auto) 5.29 10^3/uL 10^3/uL (1.70-6.50) Absolute Lymphs (auto) 2.32 10^3/uL 10^3/uL (1.00-3.00) Absolute Monos (auto) 0.56 10^3/uL 10^3/uL (0.30-0.80) Absolute Eos (auto) 0.36 10^3/uL 10^3/uL (0.03-0.40) Absolute Basos (auto) 0.04 10^3/uL 10^3/uL (0.02-0.10) Absolute Nucleated RBC 0.00 10^3/uL 10^3/uL (0-0.01) Immature Gran % 0.3 % % (0.0-1.1) Immature Gran # 0.03 10^3/uL 10^3/uL (0.00-0.10) D-Dimer < 0.27 ug/mLFEU ug/mLFEU (0.00-0.50) Sodium 146 mEq/L H mEq/L (135-145) Potassium 4.9 mEq/L mEq/L (3.5-5.2) Chloride 101 mEq/L mEq/L (97-110) Carbon Dioxide 27 mEq/l mEq/l (22-31) Anion Gap 18 mEq/L H mEq/L (8-16) BUN 14 mg/dL mg/dL (7-23) Creatinine 0.8 mg/dL mg/dL (0.7-1.3) Estimated GFR > 60 Glucose 122 mg/dL H mg/dL (70-100) Calcium 10.8 mg/dL H mg/dL (8.5-10.4) Phosphorus Pending Troponin I < 0.012 ng/mL ng/mL (0.000-0.034) Departure - Departure Disposition: Law Enforcement/Court/Custodial Clinical Impression: Chest pain Qualifiers: Chest pain type: unspecified Qualified Code(s): R07.9 - Chest pain, unspecified Condition: Good Instructions: Chest Pain (ED) Referrals: Dale Penn MD [Medical Doctor] - As per Instructions
--- NOTE | 2017-10-07 14:55 | CPEKG ---
Heart Rate: 129 RR Interval: 465 P-R Interval: 99 QRSD Interval: 92 QT Interval: 320 QTC Interval: 469 P [place]: 81 QRS [place]: 103 T Wave [place]: 60 EKG Severity - ABNORMAL ECG - EKG Impression: SINUS TACHYCARDIA EKG Impression: BORDERLINE RIGHT AXIS DEVIATION EKG Impression: BORDERLINE Q WAVES IN INFERIOR LEADS EKG Impression: INFERIOR Q WAVES, PROBABLY NORMAL VARIATION EKG Impression: BORDERLINE PROLONGED QT INTERVAL Electronically Signed By: Jared Torres 07-Oct-2017 15:00:36
[2017-10-07 14:56] VITALS: TEMP 98.8; O2SAT 97
[2017-10-07 15:03] LABS: PLATELET COUNT 238 10^3/uL (150-400)
[2017-10-07] MEDS ORDERED: IBUPROFEN 600 MG TAB PO ONE (15:44)
[2017-10-07 15:56] VITALS: BP 116/74; PULSE 85; RESP 16
== END 2017-10-07 15:54 ==
LOC: EDUNIT#
DX: R07.9 Chest pain, unspecified (principal); F17.200 Nicotine dependence, unspecified, uncomplicated